=== PATIENT | female | born 1960 | race Caucasian/White ===

== ENCOUNTER → 2016-09-15 | Outpatient (CLI) | payer OTHER | END | disposition disaster alternative care site (69) | LOC: GRAD 10:46 | DX: C50.811 Malignant neoplasm of overlapping sites of right female breast (principal); Z90.49 Acquired absence of other specified parts of digestive tract; Z96.89 Presence of other specified functional implants | CPT/HCPCS: A9503; Q9967 ==

== ENCOUNTER → 2017-01-02 | Outpatient (CLI) | payer OTHER | END | disposition disaster alternative care site (69) | LOC: GRAD 10:13 | DX: R93.0 Abnormal findings on diagnostic imaging of skull and head, not elsewhere classified (principal); H70.91 Unspecified mastoiditis, right ear; H53.9 Unspecified visual disturbance; R26.9 Unspecified abnormalities of gait and mobility; R51 Headache | CPT/HCPCS: A9577 ==